=== PATIENT | male | born 1985 | race Two or more races ===

== ENCOUNTER 2025-08-03 13:12 | Inpatient (IN) | payer OTHER ==
[2025-08-03] VITALS (9 sets, daily range): BP systolic 129–163; BP diastolic 66–94; TEMP 97.8–98; O2SAT 95–99
[~2025-08-03] VITALS: Ht 172.7 cm; Wt 85.3 kg
[2025-08-03] MEDS ORDERED: Calcium Gluconate 0.465 MEQ/ML VIAL IV ONE (13:29)
[2025-08-03 13:45] LABS: PLATELET COUNT (AUTO) 278 K/uL (150-450); RED BLOOD CELL COUNT(AUTO) 5.06 MIL/uL (4.5-6.0); RED CELL DISTRIBUTION WIDTH 13.1 % (11.5-15.0)
[2025-08-03] MEDS: Calcium Chloride 13.6 MEQ/10ML VIAL IV ONE (13:47)
[2025-08-03] MEDS: IV NS 0.9% 1,000 ML BAG IV ONE (13:48)
[2025-08-03] MEDS: SODIUM BICARBONATE SYR 50 MEQ/50 ML DISP.SYRIN IV ONE ×2 (13:50→14:39)
[2025-08-03 13:57] LABS: WHITE BLOOD COUNT (AUTO) 33.3 K/uL (4.3-11.0)
[2025-08-03 14:03] LABS: LACTIC ACID 6.7 mmol/L (0.4-2.0)
[2025-08-03 14:04] LABS: ASPARTATE AMINOTRANSFERASE 36 U/L (15-37); CALCIUM, SERUM 9.7 mg/dL (8.5-10.1); CREATININE 4.6 mg/dL (0.6-1.3); TOTAL PROTEIN, SERUM 7.9 g/dL (6.4-8.2); UREA NITROGEN, BLOOD 44 mg/dL (7-18)
[2025-08-03 14:13] LABS: INR 1.11 (0.91-1.10); SODIUM SERUM 113 mmol/L (136-145)
[2025-08-03] MEDS ORDERED: CEFTRIAXONE 1GM BAG (ER ONLY) 50 ML IV ONE (14:19)
[2025-08-03] MEDS ORDERED: METF-440 PO (14:21)
[2025-08-03] MEDS ORDERED: SEMA1PEN SQ (14:21)
[2025-08-03] MEDS ORDERED: ATOR20TA PO (14:21)
[2025-08-03] MEDS ORDERED: ACETAMINOPHEN 325 MG TABLET PO PRN (14:30)
[2025-08-03] MEDS ORDERED: Z GUARD REMEDY 4 OZ OINT TP PRN (14:30)
[2025-08-03] MEDS ORDERED: INSULIN REGULAR, HUMAN 100 UNIT in IV NS 0.9% 99 ML IV PRN (14:30)
[2025-08-03] MEDS ORDERED: IV NS 0.9% 1,000 ML IV PRN (14:30)
[2025-08-03] MEDS ORDERED: DEXTROSE 50%-WATER 50 ML DISP.SYRIN IV PRN (14:30)
[2025-08-03] MEDS ORDERED: MAGNESIUM HYDROXIDE 30 ML UDC PO PRN (14:30)
[2025-08-03] MEDS ORDERED: MAG HYDROX/AL HYDROX/SIMETH 30 ML UDC PO PRN (14:30)
[2025-08-03] MEDS: CEFTRIAXONE 1GM BAG (ER ONLY) 1 GM/50 ML PIGGYBACK IV ONE (14:34)
[2025-08-03] MEDS: INSULIN REGULAR, HUMAN 100 UNITS in IV NS 0.9% 100 ML IV PRN (14:36)
[2025-08-03 14:46] LABS: PHOSPHORUS 6.7 mg/dL (2.5-4.9)
[2025-08-03 14:46] LABS: LYMPHOCYTES % (MANUAL) 11 % (16-48); MONOCYTES % (MANUAL) 10 % (0-11.0); NEUTROPHILS % (MANUAL) 79 (42-76); PLATELET ESTIMATE ADEQUATE
[2025-08-03] MEDS: BLOOD SUGAR DIAGNOSTIC 1 EACH STRIP IN SCH (15:00)
[2025-08-03] MEDS ORDERED: SODIUM BICARBONATE SYR 50 MEQ/50 ML DISP.SYRIN ONE (15:01)
[2025-08-03 15:33] LABS: FRACTIONATED INSPIRED OXYGEN-V 21.0 %; SITE, VBG VBG - N/A; VBG BASE EXCESS -18.5 mmol/L (-2.0-3.0); VBG HCO3 8.1 mmol/L (22.0-29.0); VBG MetHb 0.3 % (0.5-1.5); VBG OXYGEN SATURATION 70.6 % (60.0-85.0); VBG PCO2 22.7 mmHg (38.0-54.0); VBG PH 7.172 (7.320-7.430); VBG PO2 38.1 mmHg (23.0-48.0); VBG TOTAL HEMOGLOBIN 14.0 G/dL (13.5-17.5)
[2025-08-03] MEDS: Sodium Bicarbonate 100 MEQ in IV NS 0.9% 1,000 ML IV SCH (16:21)
[2025-08-03] MEDS: INSULIN REGULAR, HUMAN 100 UNIT in IV NS 0.9% 99 ML IV PRN (16:25)
[2025-08-03 16:37] LABS: PHOSPHORUS 4.5 mg/dL (2.5-4.9)
[2025-08-03 16:39] LABS: CALCIUM, SERUM 8.6 mg/dL (8.5-10.1); CREATININE 3.8 mg/dL (0.6-1.3); SODIUM SERUM 124.0 mmol/L (136-145); UREA NITROGEN, BLOOD 42.0 mg/dL (7-18)
[2025-08-03 20:39] LABS: CALCIUM, SERUM 9.1 mg/dL (8.5-10.1); CREATININE 3.4 mg/dL (0.6-1.3); SODIUM SERUM 130.0 mmol/L (136-145); UREA NITROGEN, BLOOD 41.0 mg/dL (7-18)
[2025-08-03 20:41] LABS: PHOSPHORUS 2.4 mg/dL (2.5-4.9)
[2025-08-03] MEDS: ASPIRIN 325 MG TABLET PO ONE (21:34)
[2025-08-03] MEDS: TAMSULOSIN 0.4 MG CAP.SR.24H PO SCH (21:34)
[2025-08-04] VITALS (24 sets, daily range): BP systolic 98–126; BP diastolic 46–89; TEMP 97–97.8; O2SAT 95–100
[2025-08-04 00:36] LABS: CALCIUM, SERUM 9.0 mg/dL (8.5-10.1); CREATININE 3.0 mg/dL (0.6-1.3); SODIUM SERUM 136.0 mmol/L (136-145); UREA NITROGEN, BLOOD 38.0 mg/dL (7-18)
[2025-08-04] MEDS: MORPHINE SULFATE INJ 2 MG/ML DISP.SYRIN IV PRN ×2 (03:17→12:57)
[2025-08-04 04:30] LABS: PLATELET COUNT (AUTO) 172 K/uL (150-450); RED BLOOD CELL COUNT(AUTO) 4.13 MIL/uL (4.5-6.0); RED CELL DISTRIBUTION WIDTH 13.0 % (11.5-15.0); WHITE BLOOD COUNT (AUTO) 18.7 K/uL (4.3-11.0)
[2025-08-04 04:42] LABS: PHOSPHORUS 3.3 mg/dL (2.5-4.9)
[2025-08-04 04:44] LABS: CREATINE KINASE, TOTAL 323.0 U/L (39-308)
[2025-08-04 04:48] LABS: LACTIC ACID 1.3 mmol/L (0.4-2.0)
[2025-08-04 05:34] LABS: ASPARTATE AMINOTRANSFERASE 29.0 U/L (15-37); CALCIUM, SERUM 8.6 mg/dL (8.5-10.1); CREATININE 2.8 mg/dL (0.6-1.3); SODIUM SERUM 137.0 mmol/L (136-145); TOTAL PROTEIN, SERUM 6.0 g/dL (6.4-8.2); UREA NITROGEN, BLOOD 36.0 mg/dL (7-18)
[2025-08-04] MEDS: PANTOPRAZOLE 40 MG VIAL IV SCH (08:12)
[2025-08-04 08:52] LABS: CALCIUM, SERUM 8.4 mg/dL (8.5-10.1); CREATININE 2.6 mg/dL (0.6-1.3); SODIUM SERUM 138.0 mmol/L (136-145); UREA NITROGEN, BLOOD 31.0 mg/dL (7-18)
[2025-08-04 09:12] LABS: FRACTIONATED INSPIRED OXYGEN-V 21.0 %; SITE, VBG Other; VBG BASE EXCESS -3.4 mmol/L (-2.0-3.0); VBG HCO3 19.7 mmol/L (22.0-29.0); VBG MetHb 0.4 % (0.5-1.5); VBG OXYGEN SATURATION 85.9 % (60.0-85.0); VBG PCO2 29.4 mmHg (38.0-54.0); VBG PH 7.444 (7.320-7.430); VBG PO2 49.4 mmHg (23.0-48.0); VBG TOTAL HEMOGLOBIN 11.8 G/dL (13.5-17.5)
[2025-08-04] MEDS ORDERED: *INSULIN REGULAR(HUMULIN R)HUM 100 UNIT/ML VIAL SQ PRN (09:30)
[2025-08-04] MEDS: BLOOD SUGAR DIAGNOSTIC 1 EACH STRIP IN SCH ×3 (09:30→17:31)
[2025-08-04] MEDS ORDERED: DEXTROSE 50%-WATER 50 ML DISP.SYRIN IV PRN ×2 (09:30→17:00)
[2025-08-04] MEDS ORDERED: INSULIN REGULAR, HUMAN 100 UNIT/ML 3 ML VIAL SQ PRN (09:30)
[2025-08-04] MEDS: ASPIRIN 81 MG TAB.CHEW PO SCH (10:04)
[2025-08-04] MEDS ORDERED: CALCIUM CHLORIDE 1,000 MG/10 ML DISP.SYRIN IV ONE (10:58)
[2025-08-04] MEDS ORDERED: SODIUM BICARBONATE SYR 50 MEQ/50 ML DISP.SYRIN IV ONE (10:58)
[2025-08-04] MEDS: INSULIN REGULAR, HUMAN 100 UNIT in IV NS 0.9% 99 ML IV PRN (11:59)
[2025-08-04] MEDS: Potassium Chloride 20 MEQ in IV D5/0.45 NACL 1,000 ML IV SCH (12:03)
[2025-08-04 12:13] LABS: CALCIUM, SERUM 8.5 mg/dL (8.5-10.1); CREATININE 2.4 mg/dL (0.6-1.3); SODIUM SERUM 134.0 mmol/L (136-145); UREA NITROGEN, BLOOD 30.0 mg/dL (7-18)
[2025-08-04] MEDS: CEFTRIAXONE 1 G in IV D5W 50 ML IV SCH (14:21)
[2025-08-04] MEDS: ONDANSETRON HCL/PF 4 MG/2 ML VIAL IVP PRN (14:29)
[2025-08-04 16:27] LABS: CALCIUM, SERUM 8.3 mg/dL (8.5-10.1); CREATININE 2.4 mg/dL (0.6-1.3); SODIUM SERUM 134.0 mmol/L (136-145); UREA NITROGEN, BLOOD 29.0 mg/dL (7-18)
[2025-08-04] MEDS: POTASSIUM CHLORIDE 20 MEQ TAB.PRT.SR PO ONE (17:20)
[2025-08-04] MEDS: INSULIN REGULAR, HUMAN 100 UNIT/ML 3 ML VIAL SQ PRN (17:51)
[2025-08-04] MEDS: IV NS 0.9% 1,000 ML IV PRN (20:42)
[2025-08-04 21:11] LABS: CREATININE, URINE 24.7 MG/DL (30.0-125.0); URINE SODIUM, RANDOM 61.0 mmol/l (40-220); URINE TOTAL PROTEIN 72.8 mg/dL (0-11.9)
[2025-08-04 21:38] LABS: APPEARANCE,URINE CLEAR (CLEAR); BLOOD, URINE 2+ Ery/uL (NEGATIVE); LEUKOCYTE ESTERASE ,URINE NEGATIVE (NEGATIVE); NITRITE, URINE NEGATIVE (NEGATIVE); UGLUCOSE 3+ mg/dL (NEGATIVE)
[2025-08-04 22:06] LABS: ADD URINE CULTURE NO; COARSE GRANULAR CASTS,URINE Few /LPF (None Seen)
[2025-08-04 22:16] LABS: EOSINOPHIL,URINE None Seen
[2025-08-04] MEDS: INSULIN GLARGINE, 100 UNIT/ML CARTRIDGE SQ SCH (22:24)
[2025-08-04] MEDS: *INSULIN REGULAR(HUMULIN R)HUM 100 UNIT/ML VIAL SQ PRN (22:26)
[2025-08-05] VITALS (15 sets, daily range): BP systolic 98–134; BP diastolic 64–94; TEMP 97.1–98.3; O2SAT 94–100
[2025-08-05 04:36] LABS: PLATELET COUNT (AUTO) 135 K/uL (150-450); RED BLOOD CELL COUNT(AUTO) 3.65 MIL/uL (4.5-6.0); RED CELL DISTRIBUTION WIDTH 13.5 % (11.5-15.0); WHITE BLOOD COUNT (AUTO) 9.8 K/uL (4.3-11.0)
[2025-08-05 04:52] LABS: CALCIUM, SERUM 8.4 mg/dL (8.5-10.1); CREATININE 2.0 mg/dL (0.6-1.3); SODIUM SERUM 139.0 mmol/L (136-145); UREA NITROGEN, BLOOD 20.0 mg/dL (7-18)
[2025-08-05] MEDS: LIDOCAINE 5% (PATCH) 1 EA PATCH TP SCH (10:19)
[2025-08-05] MEDS: METOCLOPRAMIDE HCL 10 MG/2 ML VIAL IV SCH (13:30)
[2025-08-05] MEDS: POLYETHYLENE GLYCOL 3350 17 GM POWD.PACK PO SCH (13:30)
[2025-08-06] VITALS: BP 134/94; TEMP 98.1; O2SAT 100
[2025-08-06 04:00] VITALS: BP 124/74; TEMP 98.1; O2SAT 98
[2025-08-06 07:27] LABS: CALCIUM, SERUM 8.6 mg/dL (8.5-10.1); CREATININE 1.3 mg/dL (0.6-1.3); SODIUM SERUM 143.0 mmol/L (136-145); UREA NITROGEN, BLOOD 14.0 mg/dL (7-18)
[2025-08-06 07:30] LABS: PLATELET COUNT (AUTO) 116 K/uL (150-450); RED BLOOD CELL COUNT(AUTO) 3.67 MIL/uL (4.5-6.0); RED CELL DISTRIBUTION WIDTH 13.2 % (11.5-15.0); WHITE BLOOD COUNT (AUTO) 6.1 K/uL (4.3-11.0)
[2025-08-06 08:00] VITALS: BP 96/71; TEMP 97.5; O2SAT 100
[2025-08-06] MEDS: PANTOPRAZOLE 40 MG TABLET.DR PO SCH (09:13)
[2025-08-06] MEDS: METHOCARBAMOL (500MG) 500 MG TABLET PO PRN (12:03)
[2025-08-06] MEDS ORDERED: INSU100I30 SQ (12:22)
[2025-08-06] MEDS ORDERED: METH-649 PO (12:22)
== END 2025-08-06 14:26 | disposition home or self-care (01) | DRG 637 ==
LOC: EDBD 13:18 → ER 13:18 → ICU 14:42 → MEDSG1 08-05 11:53
PROVIDERS: ADMIT Nurse Practitioner Acute Care; ATTEND Nurse Practitioner Family
PROC: 05H933Z Insertion of Infusion Device into Right Brachial Vein, Percutaneous Approach (ICD-10-PCS; principal; 2025-08-03)
DX: E11.10 Type 2 diabetes mellitus with ketoacidosis without coma (principal); I21.A1 Myocardial infarction type 2; N17.0 Acute kidney failure with tubular necrosis; R65.11 Systemic inflammatory response syndrome (SIRS) of non-infectious origin with acute organ dysfunction; E87.1 Hypo-osmolality and hyponatremia; M62.82 Rhabdomyolysis; Z79.84 Long term (current) use of oral hypoglycemic drugs; Z79.85 Long-term (current) use of injectable non-insulin antidiabetic drugs; Z79.899 Other long term (current) drug therapy; E11.43 Type 2 diabetes mellitus with diabetic autonomic (poly)neuropathy; E86.9 Volume depletion, unspecified; B96.89 Other specified bacterial agents as the cause of diseases classified elsewhere; N30.90 Cystitis, unspecified without hematuria; N20.0 Calculus of kidney; E87.5 Hyperkalemia; E86.1 Hypovolemia; E78.5 Hyperlipidemia, unspecified; K31.84 Gastroparesis; D72.823 Leukemoid reaction; Z79.4 Long term (current) use of insulin; E87.6 Hypokalemia
CPT/HCPCS: 36415; 71045-TC; 72020-TC; 80048-TC; 80053-TC; 80076-TC; 81001; 82150-TC; 82550-TC; 82553; 82570-TC; 82803-TC; 82962-TC; 83605-TC; 83690-TC; 83735-TC; 83970; 84100-TC; 84300-TC; 84484-TC; 85025-TC; 85027-TC; 85730-TC; 87040-TC; 87081-TC; 87086-TC; A4223; G0378; J0612; J0696; J1815; J2270; J2405; J2470; J2765; J3480; J3490; J7030; J7050; J7060